=== PATIENT | female | born 1975 | race Caucasian/White ===

== ENCOUNTER 2024-05-18 13:43 | Emergency (ER) | payer SELFPAY ==
[2024-05-18 14:23] LABS: BASOPHILS # (AUTO) 0.1 10^3/uL (0.0-0.1); BASOPHILS % (AUTO) 0.7 %; EOSINOPHILS # (AUTO) 0.1 10^3/uL (0.0-0.7); EOSINOPHILS % (AUTO) 1.6 %; HCT - HEMATOCRIT 45.3 % (37.0-47.0); HGB - HEMOGLOBIN 13.7 g/dL (12.0-16.0); LYMPHOCYTES # (AUTO) 0.9 10^3/uL (1.5-3.5); LYMPHOCYTES % (AUTO) 12.8 %; MEAN CORPUSCULAR HEMOGLOBIN 22.6 pg (27.0-31.0); MEAN CORPUSCULAR HGB CONC 30.2 g/dL (32.0-36.0); MEAN CORPUSCULAR VOLUME 74.9 fL (81.0-99.0); MEAN PLATELET VOLUME 9.4 fL (7.9-10.8); MONOCYTES # (AUTO) 0.6 10^3/uL (0.0-1.0); MONOCYTES % (AUTO) 8.5 %; NEUTROPHILS # (AUTO) 5.2 10^3/uL (1.5-6.6); PLT - PLATELET COUNT 197 10^3/uL (130-450); RED BLOOD COUNT 6.05 10^6/uL (4.20-5.40); RED CELL DISTRIBUTION WIDTH 19.3 % (12.0-15.0); WHITE BLOOD COUNT 6.8 x10^3/uL (4.8-10.8)
[2024-05-18 14:36] LABS: ALBUMIN/GLOBULIN RATIO 1.4 (1.0-2.2); CALCIUM 10.4 mg/dL (8.5-10.3); CREATININE 0.5 mg/dL (0.6-1.3); POTASSIUM 3.3 mmol/L (3.5-4.5); TOTAL PROTEIN 6.9 g/dL (6.4-8.9)
[2024-05-18 14:50] LABS: BILIRUBIN,URINE NEGATIVE (NEGATIVE); GLUCOSE, URINE (UA) NEGATIVE (NEGATIVE); KETONES,URINE (UA) NEGATIVE (NEGATIVE); LEUKOCYTE ESTERASE, URINE LARGE (NEGATIVE); NITRITE,URINE POSITIVE (NEGATIVE); OCCULT BLOOD,URINE LARGE (NEGATIVE); PROTEIN,URINE 30 mg/dL (NEGATIVE); UROBILINOGEN,URINE 0.2 (NORMAL) E.U./dL (NORMAL)
[2024-05-18 14:52] LABS: CLARITY,URINE CLOUDY (CLEAR)
[2024-05-18 15:02] LABS: AMORPHOUS SEDIMENT,UR Few /LPF; BACTERIA,URINE Moderate /HPF (None Seen); SQUAMOUS EPITHELIAL CELL,UR FEW Squamous (<= Few)
--- NOTE | 2024-05-18 15:11 | ED Physician Documentation ---
PD HPI ABD PAIN - Stated complaint Stated Complaint: LWR ABD PX,DIZZY,CAN'T SLEEP - Chief complaint Chief Complaint: Abd Pain - History obtained from History obtained from: Patient, Friend - History of Present Illness Timing - onset: How many months ago (1) Timing - duration: Months (1) Timing - details: Gradual onset, Still present, Waxing and waning Quality: Cramping, Aching, Sharp, Pain Location: LLQ Improved by: Laying still Worsened by: Moving, Position, Palpation Associated symptoms: Nausea, Constipation. No: Vomiting Similar symptoms before: Has not had sx before Recently seen: Not recently seen - Additional information Additional information: Yuli Merrill is a 48-year-old female who reports that over the past month she has had pain in her abdomen especially to the left lower quadrant and that this is not resolved. She keeps expecting it to improve and it seems to be worsening. She has not experienced this previously. Review of Systems Constitutional: denies: Fever Ears: denies: Ear pain, Drainage/discharge Nose: denies: Congestion Throat: denies: Sore throat Respiratory: denies: Dyspnea, Cough GI: reports: Abdominal Pain, Nausea, Constipation. denies: Vomiting : reports: Dysuria, Frequency Skin: denies: Rash Musculoskeletal: reports: Back pain. 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, Tubal ligation HEENT: Tonsil/Adenoidectomy - Present Medications Home Medications: Ambulatory Orders Medication Instructions Recorded Confirmed Ciprofloxacin HCl [Cipro] 500 mg PO BID #14 tablet 05/18/24 HYDROcod/ACETAM 5/325 [Friant 5/325] 1 - 2 tablet PO Q6H PRN #14 tablet 05/18/24 LORazepam [Ativan] 1 mg PO Q6HR PRN #14 tablet 05/18/24 - Allergies Allergies/Adverse Reactions: Allergies Allergy/AdvReac Type Severity Reaction Status Date / Time Sulfa (Sulfonamide Allergy Unknown Verified 05/18/24 14:26 Antibiotics) talc AdvReac Rash Verified 05/18/24 14:26 - Social History Does the pt smoke?: No Smoking Status: Never smoker Does the pt drink ETOH?: Yes Does the pt have substance abuse?: No PD ED PE NORMAL - Vitals Vital signs reviewed: Yes - General General: Alert and oriented X 3, Well developed/nourished, Other (The patient appears anxious) - HEENT HEENT: Atraumatic, PERRL, EOMI - Neck Neck: Supple, no meningeal sign, No bony TTP - Cardiac Cardiac: RRR, No murmur - Respiratory Respiratory: No respiratory distress, Clear bilaterally - Abdomen Abdomen: Normal bowel sounds, Soft, Other (The patient has a large pannus with some mottling to the skin overlying it. She states this has been present for some years now. 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, No motor deficit, No sensory deficit, Normal speech Eye Opening: Spontaneous Motor: Obeys Commands Verbal: Oriented GCS Score: 15 - Psych Psych: Other (The mood is anxious and the affect is labile) Results - Vitals Vitals: Vital Signs - 24 hr 05/18/24 05/18/24 05/18/24 14:03 14:15 14:25 Temperature 36.8 C Heart Rate 81 77 130 H Respiratory 18 20 20 Rate Blood Pressure 119/84 H O2 Saturation 97 98 97 05/18/24 05/18/24 16:12 17:00 Temperature Heart Rate 82 87 Respiratory 16 16 Rate Blood Pressure 112/89 H O2 Saturation 96 97 Oxygen O2 Source Room air - Labs Labs: Laboratory Tests 05/18/24 05/18/24 05/18/24 14:08 14:08 14:18 WBC 6.8 RBC 6.05 H Hgb 13.7 Hct 45.3 MCV 74.9 L MCH 22.6 L MCHC 30.2 L RDW 19.3 H Plt Count 197 MPV 9.4 Neut # (Auto) 5.2 Lymph # (Auto) 0.9 L Sutton # (Auto) 0.6 Eos # (Auto) 0.1 Baso # (Auto) 0.1 Absolute Nucleated RBC 0.00 Nucleated RBC % 0.0 Sodium 136 Potassium 3.3 L Chloride 100 L Carbon Dioxide 26 Anion Gap 10.0 BUN 10 Creatinine 0.5 L Estimated GFR (MDRD) 132 Glucose 116 H Calcium 10.4 H Magnesium 1.3 L Total Bilirubin 1.0 AST 20 ALT 16 Alkaline Phosphatase 67 Total Protein 6.9 Albumin 4.0 Globulin 2.9 Albumin/Globulin Ratio 1.4 Lipase 15 Urine Color Urine Clarity Urine pH Ur Specific [place] Urine Protein Urine Glucose (UA) Urine Ketones Urine Occult Blood Urine Nitrite Urine Bilirubin Urine Urobilinogen Ur Leukocyte Esterase Urine RBC Urine WBC Ur Squamous Epith Cells Amorphous Sediment Urine Bacteria Ur Microscopic Review Urine Culture Comments Urine HCG, Qual 05/18/24 05/18/24 14:30 14:30 WBC RBC Hgb Hct MCV MCH MCHC RDW Plt Count MPV Neut # (Auto) Lymph # (Auto) Sutton # (Auto) Eos # (Auto) Baso # (Auto) Absolute Nucleated RBC Nucleated RBC % Sodium Potassium Chloride Carbon Dioxide Anion Gap BUN Creatinine Estimated GFR (MDRD) Glucose Calcium Magnesium Total Bilirubin AST ALT Alkaline Phosphatase Total Protein Albumin Globulin Albumin/Globulin Ratio Lipase Urine Color YELLOW Urine Clarity CLOUDY Urine pH 7.0 Ur Specific [place] 1.020 Urine Protein 30 H Urine Glucose (UA) NEGATIVE Urine Ketones NEGATIVE Urine Occult Blood LARGE H Urine Nitrite POSITIVE H Urine Bilirubin NEGATIVE Urine Urobilinogen 0.2 (NORMAL) Ur Leukocyte Esterase LARGE H Urine RBC 6-10 H Urine WBC 11-25 H Ur Squamous Epith Cells FEW Squamous Amorphous Sediment Few Urine Bacteria Moderate H Ur Microscopic Review INDICATED Urine Culture Comments INDICATED Urine HCG, Qual NEGATIVE Procedures - IVC sono (time) 1500 Bedside IVC sono: IVC measures (cm) (1.31), IVC collapsed c insp (cm) (complete), Dehydration (est 1 liter deficit) PD Medical Decision Making - ED course Complexity details: reviewed old records, reviewed results, re-evaluated patient, considered differential, d/w patient, d/w family Reviewed Lab Results: CT ab/pel with: Impression: Prominently enlarged retroperitoneal lymph nodes and pelvic lymph nodes are seen. The spleen is also enlarged. Please consider lymphoma. Abnormal uterus, with a likely underlying fibroid. Differential diagnosis includes an abnormality abnormally thick endometrial endometrial stripe, but this is considered to be less likely. There is also a 5.5 cm left ovarian cyst seen. When clinically appropriate, please consider follow-up pelvic ultrasound for further evaluation. ED course: 48-year-old female who presents with some relatively nonspecific abdominal pain present for over a month without fever. She has been to another hospital for this abdominal pain and at that time they were unable to complete the CT scan that they had planned to do at [facility] or at [facility]. She was admitted there for congestive heart failure. She presents now with persistence of this pain with worsening but otherwise vague symptomatology. She is ultimately found to have urinary tract infection, a volume deficit and on CT scanning, 3 specific findings: an enlarged uterus with a fibroid, a left ovarian cyst and retroperitoneal lymph nodes consistent with the possibility of lymphoma. We treated the patient in the emergency department with a liter of saline we did give her some Toradol for pain control and 2 g Rocephin intravenously for the urinary tract infection. I consulted with the radiologist regarding the possibility of lymph node sampling by IR at our facility and he indicated to me that this is a distinct possibility as our scanner is large enough to hold the patient. Indicated there could be significant technical difficulties associated with this and intervention may need to be done elsewhere. He recommended consultation with primary for referral for interventional radiology here. Alternative facility may still be required. The patient herself was anxious at the beginning of the visit before any results were made. She was administered Ativan with marked improvement in her level of anxiety. There was further anxiety with acknowledgment of abnormalities and we will provide the patient with some anxiolytic for the coming week. Departure - Departure Disposition: 01 Home, Self Care Clinical Impression: Dehydration Urinary tract infection Qualifiers: Urinary tract infection type: acute cystitis Hematuria presence: with hematuria Qualified Code(s): N30.01 - Acute cystitis with hematuria Uterine fibroid Qualifiers: Uterine leiomyoma location: unspecified location Qualified Code(s): D25.9 - Leiomyoma of uterus, unspecified Ovarian cyst Qualifiers: Laterality: left Qualified Code(s): N83.202 - Unspecified ovarian cyst, left side Lymphoma Qualifiers: Lymphoma type: unspecified type Lymphoma site: intra-abdominal nodes Qualified Code(s): C85.93 - Non-Hodgkin lymphoma, unspecified, intra-abdominal lymph nodes Condition: Stable Instructions: Lymphoma Non Hodgkin, ED Stress React, ED Dehydration, ED Cyst Ovarian, ED Fibroids, ED UTI Cystitis Female Follow-Up: SANDY CRISTINA MD [Primary Care Provider] - Prescriptions: LORazepam [Ativan] 1 mg PO Q6HR PRN #14 tablet PRN Reason: anxiety/stress Ciprofloxacin HCl [Cipro] 500 mg PO BID #14 tablet HYDROcod/ACETAM 5/325 [Friant 5/325] 1 - 2 tablet PO Q6H PRN #14 tablet PRN Reason: Pain Comments: Yuli, today it looks like the pain you are having in your lower abdomen may be related to an ovarian cyst or an enlarged uterus with a large fibroid. In addition we found there was evidence of urinary tract infection. A more serious problem is the lymph nodes discovered on CT scanning of the abdomen and pelvis that are concerning for the possibility of lymphoma. A sample of the lymph nodes will need to be made in this can be done under radiologic guidance. This can potentially be done at [facility] through our interventional radiologist. A follow-up with your primary care doctor for referral is required for this. In the meantime I would like to provide you with some medication to relieve pain and some antibiotic to treat the urinary tract infection. This is a very stressful visit with stressful news and I have E scribed some Ativan as well for you to use for the stress reaction. These medications have been E scribed to the [facility] in [place]. Forms: PCP List Discharge Date/Time: 05/18/24 17:46
[2024-05-18] MEDS: SODIUM CHLORIDE 0.9% 1,000 ML IV STA (15:16)
[2024-05-18] MEDS ORDERED: iohexoL-300 100 ML VIAL ONE (15:25)
[2024-05-18] MEDS: LORazepam 2 MG/ML VIAL IVP STA (15:27)
[2024-05-18] MEDS: iohexoL-300 100 ML VIAL IVP ONE (15:52)
[2024-05-18] MEDS: cefTRIAXone 2 GM in SODIUM CHLORIDE 0.9% MINIBAG 100 ML IV STA (16:09)
--- NOTE | 2024-05-18 16:20 | CT Report ---
PROCEDURE: Abdomen/Pelvis W INDICATIONS: LLQ pain CONTRAST: 100ml omni 300 TECHNIQUE: After the administration of intravenous contrast, a CT scan of the abdomen and pelvis was performed. Images were recorded and evaluated at appropriate window settings. Reformats: coronal and sagittal. F or radiation dose reduction, the following was used: automated exposure control, adjustment of mA and /or kV according to patient size. COMPARISON: None. FINDINGS: Image quality: This study is limited by body habitus. Lower chest: Unremarkable. Liver: No solid mass. Gallbladder: Within normal limits. Biliary tree: No intrahepatic or extrahepatic dilation, accounting for age. Spleen: The spleen is enlarged, measuring 18.5 cm AP. Pancreas: No pancreatic ductal dilation. Adrenals: No adrenal nodule. Kidneys and ureters: No hydronephrosis. No renal cystic lesion which requires follow up. No solid mas s. Stomach, bowel and peritoneum: No gastric or small bowel dilation. No abnormal wall thickening. No pa thologic free fluid. A normal appendix is seen. Lymph nodes: Enlarged retroperitoneal lymph nodes are seen, including a mass of lymph nodes measuring 6.8 x 8.8 cm, measured together. Vessels: No infrarenal aortic aneurysm. Patent portal vein. PELVIS Reproductive organs: The uterus is enlarged. There is a low-density region seen measuring at least 11 cm within it. There is a 5.5 cm left adnexal cyst seen. Bladder: No abnormal wall thickening, accounting for underdistention. Pelvic lymph nodes: Enlarged pelvic lymph nodes are seen, including a right iliac chain group of lymp h nodes measuring 8.2 x 5 cm, when measured together. Bones: No aggressive osseous abnormality. Focal lower lumbar spine degenerative changes are seen. Other: No significant ventral or inguinal hernia. IMPRESSION: Prominently enlarged retroperitoneal lymph nodes and pelvic lymph nodes are seen. The spleen is also enlarged. - Please consider lymphoma. Abnormal uterus, with a likely underlying fibroid. Differential diagnosis includes an abnormally thic kened endometrial stripe, yet this is considered to be less likely. There is also a 5.5 cm left ovarian cyst seen. - When clinically appropriate, please consider a follow-up pelvic ultrasound for further evaluation. Additional findings: Focal L5-S1 degenerative change Reviewed by: Myron Siu MD on 05/18/2024 3:18 PM SHARON Approved by: Myron Siu MD on 05/18/2024 3:18 PM SHARON Station ID: [id number]
[2024-05-18 16:44] LABS: HCG UR QUAL NEGATIVE
[2024-05-18] MEDS: MAGNESIUM SULFATE 2 GRAM 2 GM/50 ML BAG IV ONE (16:47)
[2024-05-18] MEDS: KETOROLAC 30 MG/ML VIAL IVP STA (17:06)
[2024-05-18 17:37] VITALS: BP 112/89; O2SAT 97
== END 2024-05-18 17:46 | disposition home or self-care (01) ==
LOC: ED 13:43
DX: N30.01 Acute cystitis with hematuria (principal); E86.0 Dehydration; D25.9 Leiomyoma of uterus, unspecified; R16.1 Splenomegaly, not elsewhere classified; N83.202 Unspecified ovarian cyst, left side; R59.0 Localized enlarged lymph nodes; I50.9 Heart failure, unspecified
CPT/HCPCS: 36415; 74177; 80053; 81001; 81025; 83690; 83735; 85025; 87077; 87086; 87181; 93005; 96361; 96365; 96375; 99284; J2060; Q9967; 81003

== ENCOUNTER 2024-05-31 00:16 | Outpatient (CLI) | payer MEDICAID | END 2024-05-31 00:17 | disposition E | LOC: EMS 00:16 | DX: I46.9 Cardiac arrest, cause unspecified (principal) | CPT/HCPCS: A0426; A0998 ==